=== PATIENT | male | born 1995 | race Two or more races ===

== ENCOUNTER 2023-07-20 01:44 | Emergency (ER) | payer BC, OTHER ==
[~2023-07-20] VITALS: Ht 193 cm; Wt 102.0 kg
[2023-07-20 02:42] LABS: Basophils # (auto) 0.1 10 ^3/uL (0-0.2); Basophils % (auto) 0.6 % (0.0-2.0); Eosinophils # (auto) 0.1 10 ^3/uL (0-0.8); Eosinophils % (auto) 1.1 % (0.0-7.0); Hematocrit 42.9 % (41.0-53.0); Hemoglobin 14.3 g/dL (13.5-17.5); Lymphocytes % (auto) 19.1 % (10.0-50.0); Mean Corpuscular Hemoglobin 28.9 pg (28.0-32.0); Mean Corpuscular Hgb Conc. 33.4 g/dL (32.0-36.0); Mean Corpuscular Volume 86.7 fL (80.0-100.0); Monocytes % (auto) 9.5 % (0.0-12.0); Neutrophils # (auto) 7.3 10 ^3/uL (1.6-8.6); Neutrophils % (auto) 69.7 % (37.0-80.0); Red Blood Cells 4.95 10^6/uL (4.5-5.90); Red Cell Distribution Width 13.2 % (11.8-14.3); White Blood Cell 10.4 10^3/uL (4.4-10.8)
[2023-07-20 03:01] LABS: Alanine Aminotransferase 33 U/L (7-40); Albumin 4.3 g/dL (3.2-4.8); Alkaline Phosphatase 68 U/L (46-116); Anion Gap 7 (5-15); Aspartate Aminotransferase 16 U/L (13-40); BUN/Creatinine Ratio 10.5 (10.0-20.0); Bilirubin, Total 0.6 mg/dL (0.2-1.0); Blood Urea Nitrogen 10 mg/dL (9-23); Calcium 9.3 mg/dL (8.7-10.4); Carbon Dioxide 22 mmol/L (20-30); Chloride 108 mmol/L (98-107); Glucose 138 mg/dL (74-106); Potassium 3.4 mmol/L (3.5-5.1); Sodium 137 mmol/L (136-145); Total Protein 7.1 g/dL (5.7-8.2)
[2023-07-20 03:15] LABS: INR 1.04 (0.9-1.15); Partial Thromboplastin Time 28.8 SEC (24.5-34.5); Prothrombin Time 10.9 sec (9.3-11.8)
[2023-07-20] MEDS ORDERED: HYDROcodone-ACET 5/325MG TAB PO ONE (04:30)
[2023-07-20] MEDS ORDERED: ONDANSETRON ODT 4 MG TAB PO ONE (04:30)
[2023-07-20] MEDS ORDERED: KETOROLAC TROMETH 30 MG/ML 1ML VIAL IM ONE (04:30)
[2023-07-20 05:21] LABS: Urine Bacteria NONE SEEN /hpf (None Seen); Urine Blood Negative /uL (Negative); Urine Clarity Clear (Clear); Urine Color Yellow (Yellow); Urine Mucus FEW (None Seen); Urine Protein, UAD TRACE (Negative); Urine Specific Gravity 1.034 (1.001-1.035); Urine Urobilinogen Normal (Negative); Urine WBC 8 /hpf (0 - 3); Urine pH 5.5 (5.0-8.0)
[2023-07-20 05:44] VITALS: TEMP 97.7
[2023-07-20] MEDS ORDERED: KETOROLAC TROMETH 60MG/2ML VIAL IM ONE (05:45)
[2023-07-20] MEDS ORDERED: IBUP1TAB5 PO (06:28)
[2023-07-20 07:06] VITALS: BP 113/68; PULSE 63; RESP 14; O2SAT 99
== END 2023-07-20 07:08 | disposition home or self-care (01) ==
LOC: ER 01:44
DX: S06.0X0A Concussion without loss of consciousness, initial encounter (principal); E87.6 Hypokalemia; F17.210 Nicotine dependence, cigarettes, uncomplicated; W19.XXXA Unspecified fall, initial encounter; Y93.89 Activity, other specified; Y92.89 Other specified places as the place of occurrence of the external cause; Y99.8 Other external cause status
CPT/HCPCS: 36415; 70450; 72125; 74176; 80053; 81001; 83690; 85025; 85610; 85730; 96372; 99285; J1885; Q0162